=== PATIENT | female | born 1940 | race Caucasian/White ===

== ENCOUNTER 2024-12-30 16:47 | Observation (INO) ==
[2024-12-30 18:03] LABS: MEAN PLATELET VOLUME 10.0 fL (7.4-11.0); RED CELL DISTRIBUTION WIDTH 12.8 % (11.6-16.5)
[2024-12-30 18:06] LABS: INR 1.22 (0.8-1.3)
[2024-12-30 18:11] VITALS: BMI 18.6
[2024-12-30 18:12] LABS: CREATININE 1.11 mg/dL (0.55-1.02); eGFR NON BLACK RACES 50 (>60)
[2024-12-30] MEDS ORDERED: TORADOL 15 MG VIAL IVP PRN (18:33)
[2024-12-30] MEDS ORDERED: APRESOLINE INJ 20 MG VIAL IVP PRN (18:36)
[2024-12-30] MEDS ORDERED: PHARMACY CONSULT XX SCH (19:00)
[2024-12-30] MEDS: LOVENOX INJ 60 MG SYR SC SCH (20:14)
[2024-12-31 05:45] LABS: MEAN PLATELET VOLUME 9.5 fL (7.4-11.0); RED CELL DISTRIBUTION WIDTH 12.6 % (11.6-16.5)
[2024-12-31 05:58] LABS: COR CA(FOR HYPOALB) 9.3 mg/dL (8.5-10.1); CREATININE 1.07 mg/dL (0.55-1.02); eGFR NON BLACK RACES 52 (>60)
[2024-12-31] MEDS: LOVENOX INJ 60 MG SYR SC SCH (08:04)
--- NOTE | 2024-12-31 09:37 | DR.H&P ---
H&P History & Physical for Day of: H&P Date: 12/31/24 Chief Complaint Chief Complaint: left leg pain and swelling History of Present Illness History of Present Illness: Patient is an 84-year-old female with no past medical history. She reports having left lower leg pain with swelling that she noticed for the past few days. Symptoms became worse and she went to her PCP. She was then directly admitted due to having an ultrasound that was positive for DVT. Labs/imaging: WBC 9.6, hemoglobin 12.6, platelets 104, sodium 139, potassium 4.0, creatinine 1.07, glucose 96. Ultrasound revealed an extensive DVT from the left common femoral to left popliteal. Patient was started on full dose Lovenox. Will consult vascularDr. Sangeetha. Will follow-up recommendations. Otherwise continue current treatment plan. Continue closely monitor and follow-up labs/imaging. Family History Family Medical History: Diabetes Mellitus Social History Does patient currently use any type of tobacco product: No Type of Tobacco Use: None Alcohol Use: None Drug Use: None Medications Home Medications: Home Medications Medication Instructions Recorded Confirmed Type NK 07/09/24 12/30/24 History Allergies Allergies Allergy/AdvReac Type Severity Reaction Status Date / Time No Known Drug Allergies Allergy Unknown Verified 12/30/24 15:25 Labs 12/31/24 05:30 12/31/24 05:30 Labs: Laboratory WBC 9.6 X10^3/uL (3.6-10.0) 12/31/24 05:30 RBC 3.85 X10^6/uL (3.5-5.4) 12/31/24 05:30 Hgb 12.6 g/dL (12.0-16.0) 12/31/24 05:30 Hct 36.6 % (36.0-47.0) 12/31/24 05:30 MCV 95.1 fL (80.0-100.0) 12/31/24 05:30 MCH 32.7 pg (27.0-34.0) 12/31/24 05:30 MCHC 34.4 g/dL (33.0-35.0) 12/31/24 05:30 RDW 12.6 % (11.6-16.5) 12/31/24 05:30 Plt Count 104 X10^3/uL (150.0-450.0) L 12/31/24 05:30 MPV 9.5 fL (7.4-11.0) 12/31/24 05:30 Neut % (Auto) 65.4 % (42.0-75.0) 12/31/24 05:30 Lymph % (Auto) 18.9 % (21.0-51.0) L 12/31/24 05:30 Island % (Auto) 13.9 % (0.0-13.0) H 12/31/24 05:30 Eos % (Auto) 1.3 % (0.9-2.9) 12/31/24 05:30 Baso % (Auto) 0.5 % (0.2-1.0) 12/31/24 05:30 Neut # (Auto) 6.3 x10^3/uL (2.2-4.8) H 12/31/24 05:30 Lymph # (Auto) 1.8 X10^3/uL (1.3-2.9) 12/31/24 05:30 Island # (Auto) 1.3 x10^3/uL (0.3-0.8) H 12/31/24 05:30 Eos # (Auto) 0.1 x10^3/uL (0.0-0.2) 12/31/24 05:30 Baso # (Auto) 0.1 X10^3/uL (0.0-0.1) 12/31/24 05:30 Absolute Nucleated RBC 0.3 /100WBC 12/31/24 05:30 PT 15.6 SECONDS (11.8-14.3) 12/30/24 17:44 INR Target Range - 12/30/24 17:44 INR 1.22 (0.8-1.3) 12/30/24 17:44 Sodium 139 mmol/L (136-145) 12/31/24 05:30 Corrected Sodium TNP 12/31/24 05:30 Potassium 4.0 mmol/L (3.5-5.1) 12/31/24 05:30 Chloride 105 mmol/L (98-107) 12/31/24 05:30 Carbon Dioxide 22.6 mmol/L (21-32) 12/31/24 05:30 BUN 25 mg/dL (7-18) H 12/31/24 05:30 Creatinine 1.07 mg/dL (0.55-1.02) H 12/31/24 05:30 Est GFR (MDRD) Af Amer > 60 (>60) 12/31/24 05:30 Est GFR (MDRD) Non-Af 52 (>60) L 12/31/24 05:30 Glucose 96 mg/dL (65-99) 12/31/24 05:30 Calcium 8.7 mg/dL (8.5-10.1) 12/31/24 05:30 Corrected Calcium 9.3 mg/dL (8.5-10.1) 12/31/24 05:30 Total Bilirubin 1.60 mg/dL (0.2-1.0) H 12/31/24 05:30 AST 15 Units/L (15-37) 12/31/24 05:30 ALT 6 Units/L (12-78) L 12/31/24 05:30 Alkaline Phosphatase 110 Units/L (46-116) 12/31/24 05:30 Total Protein 7.5 g/dL (6.4-8.2) 12/31/24 05:30 Albumin 3.3 g/dL (3.4-5.0) L 12/31/24 05:30 Globulin 4.2 g/dL (2.5-4.5) 12/31/24 05:30 Albumin/Globulin Ratio 0.8 Ratio (1.1-2.1) L 12/31/24 05:30 Review of Systems Constitutional: No Symptoms Reported Eyes: No Symptoms Reported ENT: No Symptoms Reported Respiratory: No Symptoms Reported Cardiovascular: No Symptoms Reported Gastrointestinal: No Symptoms Reported Genitourinary: No Symptoms Reported Musculoskeletal: Leg Pain Skin: No Symptoms Reported Neurological: No Symptoms Reported Physical Exam Vital Signs: Vital Signs Temperature 98.1 F Pulse Rate [Left Radial] 90 Respiratory Rate 19 Blood Pressure [Left Arm] 151/69 O2 Sat by Pulse Oximetry 93 Oriented: Normal Eyes: Normal Ear: Normal Nose: Normal Throat: Normal Respiratory: Clear Throughout Cardiovascular: Normal : Normal Auscultation: Bowel Sounds: Normal Palpation: Normal Tenderness: Normal Skin: Normal Musculoskeletal: Normal and Leg (+1 pitting edema LLE) Psychiatric: Normal Mood Description: Calm and Appropriate Affect: Normal Speech Pattern: Clear and Appropriate Assessment/Plan (1) Deep vein thrombosis, lower left extremity: Qualifiers: Affected thrombotic vein of extremity: other lower extremity vein C hronicity: acute Qualified Code(s): I82.492 - Acute embolism and thrombosis of other specified deep vein of left lower extremity Status: Acute Plan: Continue full dose Lovenox. Consult vascular surgery for further evaluation. Continue to monitor. Review H&P Reviewed: Yes Patient was examined?: Yes
[2024-12-31 12:47] VITALS: RESP 18; TEMP 98.5
--- NOTE | 2024-12-31 16:31 | DR.CONSULT ---
CONSULT Consultation for Day of: Date: 12/31/24 Chief Complaint Chief Complaint: acute sqwelling of left leg, documented extensive DVT of left femoral and popliteal veins with complete venous occlusion Allergies Allergies Allergy/AdvReac Type Severity Reaction Status Date / Time No Known Drug Allergies Allergy Unknown Verified 12/30/24 15:25 History of Present Illness History of Present Illness: This is a 84-year-old female previously healthy no significant past medical history and no home medications who had a 2-day history of swelling of the left leg. She saw her PCP and had an ultrasound showing extensive deep venous thrombosis of the entire left femoral and popliteal veins with complete occlusion. She has no significant past medical history. She has been mobile and is not bed ridden or lacking in activity or motion. No prior history of clotting abnormalities. Family History Family Medical History: Diabetes Mellitus Social History Does patient currently use any type of tobacco product: No Type of Tobacco Use: None Alcohol Use: None Drug Use: None Medications Home Medications: No Known Drug Allergies Allergy (Unknown, Verified 12/30/24 15:25) Review of Systems Constitutional: See HPI Eyes: No Symptoms Reported ENT: No Symptoms Reported Respiratory: No Symptoms Reported Cardiovascular: No Symptoms Reported Gastrointestinal: No Symptoms Reported Genitourinary: No Symptoms Reported Musculoskeletal: No Symptoms Reported Skin: No Symptoms Reported Neurological: No Symptoms Reported Physical Exam Vital Signs: Vital Signs Temperature 98.5 F Pulse Rate [Left Radial] 79 Respiratory Rate 18 Blood Pressure [Left Arm] 160/72 O2 Sat by Pulse Oximetry 93 Oriented: Normal, Time, Person and Place Eyes: Normal Ear: Normal Nose: Normal Throat: Normal Respiratory: Clear Throughout Cardiovascular: Normal and Other (3+ edema of the left calf which is tender. Small areas of ecchymosis of the left calf) : Normal Auscultation: Bowel Sounds: Normal Palpation: Normal Tenderness: Normal Skin: Normal Musculoskeletal: Normal Psychiatric: Normal Mood Description: Calm Affect: Normal Speech Pattern: Clear and Appropriate Plan (1) Deep vein thrombosis, lower left extremity: Status: Acute Qualifiers: Affected thrombotic vein of extremity: other lower extremity vein Chronicity: acute Qualified Code(s): I82.492 - Acute embolism and thrombosis of other specified deep vein of left lower extremity Plan: Patient currently on therapeutic Lovenox dose which I agree with. I would recommend ultrasound-guided placement of thrombolytic catheter and tPA thrombolysis of this clot to prevent long-term complications. The bigger question is why does this otherwise healthy 84-year-old female who is not bed ridden have a deep venous thrombosis. This will need extensive evaluation. At this time the family requests that they be transferred to [place] and I have spoken with Dr. Enriquez, the admitting physician, who will take care of the transfer.
[2024-12-31 16:34] VITALS: BP 148/71; PULSE 84; O2SAT 94
== END 2024-12-31 17:15 | disposition short-term general hospital (02) ==
LOC: MED/SURG
PROVIDERS: ADMIT Internal Medicine; ATTEND Internal Medicine
DX: I82.432 Acute embolism and thrombosis of left popliteal vein; I82.412 Acute embolism and thrombosis of left femoral vein; R60.0 Localized edema; R74.8 Abnormal levels of other serum enzymes; E80.6 Other disorders of bilirubin metabolism; M79.605 Pain in left leg